=== PATIENT | male | born 1975 | race African-American/Black ===

== ENCOUNTER → 2017-07-13 | Outpatient (CLI) | payer BC ==
[~2017-07-13] MED LIST: NS 100 ML IV 100 ML IV ONE
[2017-07-13 08:49] LABS: CREATININE 1.31 mg/dL (0.70-1.30)
--- NOTE | 2017-07-13 14:07 | CT ---
CTA ABDOMEN WITH AND WITHOUT CONTRAST CLINICAL INDICATION: Malignant hypertension. PROCEDURE: Noncontrast CTA images were initially obtained through the abdomen. Following administra tion of non-ionic IV contrast, postcontrast CTA images were obtained through the abdomen. 3D reconstr uctions were performed. Dose reduction techniques including Automated Exposure Control (AEC) and ad justment of mA and kV were utlized. COMPARISON: None FINDINGS: Vascular: No aneurysms. No evidence of renal artery stenosis..No dissection. CTA Abdomen without contrast: No gallstones, renal stones or proximal ureteral stones. CTA Abdomen with intravenous contrast: Liver and spleen are normal in size, enhancement characteristi cs and contour. No focal lesions. The portal vein is patent. No ductal dilitation. Gallbladder is pre sent. No gallbladder wall thickening. The pancreas is unremarkable. Adrenal glands are normal. Kidney s enhance symmetrically without hydronephrosis. No bowel obstruction or inflammation. jaret mesenteric appearance. No free fluid or fluid collection s. IMPRESSION: 1. No evidence of renal artery stenosis. 2. 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 Reported By:
== END ==
LOC: RAD 08:18
PROVIDERS: ATTEND Nurse Practitioner Family
DX: I10 Essential (primary) hypertension (principal)
CPT/HCPCS: 36415; 74175; 82565; 84520; A4222